=== PATIENT | male | born 1975 | race Caucasian/White ===

== ENCOUNTER 2019-09-02 06:25 | Emergency (ER) | payer MEDICAID ==
[2019-09-02 06:53] LABS: #Basophils 0.1 thou/uL (0.0-0.2); #Eosinphils 0.2 thou/uL (0.0-0.7); #Lymphocytes 4.6 thou/uL (1.20-3.40); #Monocytes 0.9 thou/uL (0.11-0.59); #Neutrophils 8.3 thou/uL (1.40-6.50); %Basophils 0.7 % (0.0-1.0); %Eosinophils 1.4 % (0.0-10.0); %Lymphocytes 32.3 % (21.0-51.0); %Monocytes 6.4 % (0.0-10.0); %Neutrophils 59.1 % (42.0-75.0); Hemoglobin 17.5 g/dL (14.0-18.0); Mean Corpuscular Hemoglobin 31.7 pg (27.0-31.0); Mean Corpuscular Volume 93.2 fL (78.0-98.0); Platelet Count 307 thou/uL (130-400); RBC Distribution Width 11.5 % (11.5-14.5); Red Blood Cell (RBC) Count 5.51 mill/uL (4.70-6.10); White Blood Cell (WBC) Count 14.1 thou/uL (4.8-10.8)
[2019-09-02] MEDS ORDERED: Morphine 4 MG/ML VIAL ONE (07:07)
[2019-09-02] MEDS ORDERED: Ondansetron PF 4 MG/2 ML Vial ONE (07:07)
[2019-09-02 07:16] LABS: ALT (SGPT) 61 U/L (8-55); AST (SGOT) 41 U/L (5-34); Albumin 3.9 g/dL (3.5-5.0); Alkaline Phosphatase 144 U/L (40-110); Anion Gap 17 mmol/L (10-20); BUN (Urea Nitrogen) 14 mg/dL (8.9-20.6); Bilirubin, Total 0.4 mg/dL (0.2-1.2); Calc. Creatinine Clearance 0 mL/min (70-130); Calcium 9.1 mg/dL (7.8-10.44); Carbon Dioxide 22 mmol/L (22-29); Chloride 92 mmol/L (98-107); Estimated GFR-MDRD 69; Globulin 3.5 g/dL (2.4-3.5); Lipase 33 U/L (8-78); Protein, Total 7.4 g/dL (6.0-8.3); Sodium 127 mmol/L (136-145)
[2019-09-02 07:20] LABS: Glucose 626 mg/dL (70-105)
[2019-09-02 07:20] LABS: Bacteria/HPF None Seen HPF (None Seen); Bilirubin Negative (Negative); Blood, Urine Negative (Negative); Clarity Clear (Clear); Glucose, Urine (Dipstick) Greater than 1000 mg/dL (Negative); Leukocyte Negative Leu/uL (Negative); Nitrite Negative (Negative); Protein, Urine (Dipstick) 50 mg/dL (Neg-Trace); RBC/HPF 0-3 HPF (0-3); Squamous Epithelial None Seen HPF (0-3); Urobilinogen Normal mg/dL (Less than 2); WBC/HPF 0-3 HPF (0-3)
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
[2019-09-02] MEDS ORDERED: Iopamidol-370 76% 500 ML 1 ML ONE (09:49)
== END 2019-09-02 08:45 | disposition home or self-care (01) ==
LOC: ERS 06:25
DX: S30.1XXA Contusion of abdominal wall, initial encounter (principal); S40.812A Abrasion of left upper arm, initial encounter; S40.811A Abrasion of right upper arm, initial encounter; R91.1 Solitary pulmonary nodule; V89.2XXA Person injured in unspecified motor-vehicle accident, traffic, initial encounter; F17.210 Nicotine dependence, cigarettes, uncomplicated
CPT/HCPCS: 36416; 71260; 74177; 80053; 81003; 81015; 82330; 82435; 82803; 83690; 84132; 84295; 85014; 85025; 96361; 96374; 96375; G0390; J2270; J2405; Q9967